=== PATIENT | female | born 1965 | race Caucasian/White ===

== ENCOUNTER 2016-07-14 07:26 | Day surgery (SDC) | payer OTHER ==
[~2016-07-14] VITALS: Ht 160 cm; Wt 69.2 kg
[~2016-07-14 07:26] MED LIST: NO HOME MEDS
[2016-07-14 08:35] VITALS: Ht 160 cm; Wt 69.2 kg
[2016-07-14] MEDS ORDERED: MIDAZOLAM 1 MG/ML 2 ML INJ ONE ×2 (09:19)
[2016-07-14] MEDS ORDERED: FENTAnyl 50 MCG/ML VIAL ONE (09:19)
[2016-07-14 09:30] VITALS: BP 105/58; PULSE 65; RESP 19
[2016-07-14 09:35] VITALS: BP 104/54; PULSE 64; RESP 16
[2016-07-14 09:40] VITALS: BP 101/53; PULSE 61; RESP 19
[2016-07-14 09:45] VITALS: BP 108/63; PULSE 64; RESP 16
--- NOTE | 2016-07-14 13:40 | GILP ---
DATE OF PROCEDURE: NAME OF PROCEDURE: Colonoscopy. SURGEON: Mulu Bishop MD PREOPERATIVE DIAGNOSIS: Screening colonoscopy. POSTOPERATIVE DIAGNOSES: 1. Colonoscopy all the way to the cecum. 2. Small internal hemorrhoids. 3. No colon neoplasm was identified. INDICATION FOR THE PROCEDURE: Ms. Alvares is a 51-year-old female patient who was scheduled for scree chad colonoscopy. The procedure and possible complications are well explained to the patient. The patient understood and consented to the procedure. DESCRIPTION OF PROCEDURE: Under the influence of fentanyl and Versed, the colonoscope was carefully introduced in the rectum and under direct vision, it was advanced all the way to the cecum. FINDINGS: The patient had small internal hemorrhoids. No colon neoplasm was identified. She tolerated the procedure very well and there was no complication from the procedure. At the end of the procedure, she was awake with stable vital signs and she was discharged home to the care of h er family. IMPRESSION: 1. Colonoscopy all the way to the cecum. 2. Small internal hemorrhoids. 3. No colon neoplasm was identified. PLAN: Next screening colonoscopy in 10 years. Dictated By: MULU VELASCO/ADEEL Conf#: [id number] DID#: [id number]
== END 2016-07-14 10:59 | disposition home or self-care (01) ==
LOC: GIL 07:26
PROVIDERS: ATTEND Internal Medicine Gastroenterology
DX: Z12.11 Encounter for screening for malignant neoplasm of colon (principal); K64.8 Other hemorrhoids
CPT/HCPCS: 45378; J2250; J3010